=== PATIENT | female | born 1995 | race Two or more races ===

== ENCOUNTER 2018-06-04 04:12 | Inpatient (IN) | payer OTHER ==
[~2018-06-04] VITALS: Ht 157.5 cm; Wt 88.6 kg
[~2018-06-04 04:12] MED LIST: no meds per pt
[2018-06-04] MEDS ORDERED: OXYTOCIN 30U/ 0.9% NaCL 500ML 500 ML IV ONE (05:05)
[2018-06-04] MEDS ORDERED: LACTATED RINGERS 1,000 ML IV SCH ×3 (05:05→19:01)
[2018-06-04] MEDS ORDERED: D5%-LACTATED RINGERS 1,000 ML IV SCH (05:05)
[2018-06-04] MEDS ORDERED: NEWBORN KIT ONE (05:12)
[2018-06-04] MEDS ORDERED: OXYTOCIN 30U/ 0.9% NaCL 500ML 500 ML ONE (05:12)
[2018-06-04] MEDS ORDERED: ONDANSETRON 2MG/ML, 2ML IVPush PRN (05:30)
[2018-06-04] MEDS ORDERED: CALCIUM CARBONATE 500 MG TAB.CHEW PO PRN (05:30)
[2018-06-04] MEDS ORDERED: FENTANYL PF 100 MCG/2ML IVPush PRN (05:30)
[2018-06-04] MEDS ORDERED: FENTANYL PF 100 MCG/2ML IV PRN ×2 (05:30→21:30)
[2018-06-04 05:52] LABS: BASOPHILS # (AUTO) 0.02 x10^3/uL (0-0.1); BASOPHILS % (AUTO) 0 % (0-1); EOSINOPHILS # (AUTO) 0.05 x10^3/uL (0-0.4); EOSINOPHILS % (AUTO) 1 % (1-7); LYMPHOCYTES # (AUTO) 1.45 x10^3/uL (1-3.4); LYMPHOCYTES % (AUTO) 14 % (22-44); MD NO; MEAN CORPUSCULAR HEMOGLOBIN 29.3 pg (27.0-34.8); MEAN CORPUSCULAR HGB CONC 33.6 g/dL (32.4-35.8); MEAN CORPUSCULAR VOLUME 87.2 fL (80-100); MEAN PLATELET VOLUME 10.6 fL (7.4-10.4); MONOCYTES # (AUTO) 0.54 x10^3/uL (0.2-0.8); MONOCYTES % (AUTO) 5 % (2-9); NEUTROPHILS # (AUTO) 8.47 x10^3/uL (1.8-6.8); NEUTROPHILS % (AUTO) 80 % (42-75); PLATELET COUNT 228 x10^3/uL (130-400); RED BLOOD COUNT 4.18 x10^6/uL (3.82-5.3); RED CELL DISTRIBUTION WIDTH 15.5 % (9.6-15.2)
[2018-06-04] MEDS ORDERED: FENTANYL/BUPIV./NS/PF 250 ML EPIDCONT SCH (08:17)
[2018-06-04] MEDS ORDERED: FENTANYL PF 500 MCG, BUPIVACAINE/PF 0.5%, 30ML 62.5 ML in SODIUM CHLORIDE 0.9% 177.5 ML EPIDCONT SCH (08:30)
[2018-06-04] MEDS ORDERED: LACTATED RINGERS 1,000 ML IVBOLUS PRN (08:30)
[2018-06-04] MEDS ORDERED: FENTANYL PF 100 MCG/2ML ONE ×2 (08:49→19:50)
[2018-06-04] MEDS ORDERED: BUPIVACAINE 0.25% ONE (08:50)
[2018-06-04] MEDS ORDERED: OXYTOCIN 30U/ 0.9% NaCL 500ML 500 ML IV PRN (09:28)
[2018-06-04] MEDS ORDERED: EPHEDRINE 50 MG/ML, 1ML ONE ×3 (10:23→19:56)
[2018-06-04] MEDS ORDERED: EPHEDRINE 50 MG/ML, 1ML IVPush ONE (10:30)
[2018-06-04] MEDS ORDERED: METHYLERGONOVINE 0.2 MG/ML IM ONE (12:00)
[2018-06-04] MEDS ORDERED: AMPICILLIN 2 GM in SODIUM CHLORIDE 0.9% 100 ML IV SCH (18:30)
[2018-06-04] MEDS ORDERED: METOCLOPRAMIDE 5 MG/ML, 2ML ONE (19:11)
[2018-06-04] MEDS ORDERED: SODIUM CITRATE/CITRIC ACID 15 ML UDC ONE (19:11)
[2018-06-04] MEDS ORDERED: ACETAMINOPHEN 325 MG TABLET PO PRN (19:30)
[2018-06-04] MEDS ORDERED: MISOPROSTOL 200 MCG TABLET PR PRN (19:30)
[2018-06-04] MEDS ORDERED: METOCLOPRAMIDE 5 MG/ML, 2ML IV PRN (19:30)
[2018-06-04] MEDS ORDERED: ONDANSETRON 2MG/ML, 2ML IV PRN (19:30)
[2018-06-04] MEDS ORDERED: AMPICILLIN 2 GM in SODIUM CHLORIDE 0.9% 100 ML IV ONE (19:30)
[2018-06-04] MEDS ORDERED: MEPERIDINE/PF 50 MG/ML IM PRN (19:30)
[2018-06-04] MEDS ORDERED: METOCLOPRAMIDE 5 MG/ML, 2ML IV ONE (19:30)
[2018-06-04] MEDS ORDERED: SODIUM CITRATE/CITRIC ACID 30 ML UDC PO ONE (19:30)
[2018-06-04] MEDS ORDERED: LACTATED RINGERS 1,000 ML IVBOLUS ONE (19:30)
[2018-06-04] MEDS ORDERED: CEFAZOLIN 1,000 MG ONE (19:39)
[2018-06-04] MEDS ORDERED: morphine SULFATE/PF 0.5 MG/ML, 10ML ONE (19:40)
[2018-06-04] MEDS ORDERED: ONDANSETRON 2MG/ML, 2ML ONE (19:56)
[2018-06-04] MEDS ORDERED: PROPOFOL 10 MG/ML, 20ML ONE (19:57)
[2018-06-04] MEDS ORDERED: KETOROLAC 30 MG/1 ML ONE (20:54)
[2018-06-04] MEDS: KETOROLAC 30 MG/1 ML IV SCH (20:56)
[2018-06-04] MEDS ORDERED: MEPERIDINE/PF 50 MG/ML ONE (21:01)
[2018-06-04] MEDS: MEPERIDINE/PF 25MG/0.5ML IVPush PRN ×2 (21:14→22:10)
[2018-06-04] MEDS ORDERED: HYDROmorphone 2 MG/ML, 1ML IVPush PRN (21:30)
[2018-06-04] MEDS: LACTATED RINGERS 1,000 ML IV SCH (21:37)
[2018-06-04] MEDS: OXYTOCIN 30U/ 0.9% NaCL 500ML 500 ML IV SCH (21:37)
[2018-06-04 23:00] VITALS: BP 130/71
[2018-06-05] MEDS ORDERED: AMPICILLIN 1 GM IVPB SCH (00:30)
[2018-06-05] MEDS ORDERED: AMPICILLIN 1 GM IM SCH (00:30)
[2018-06-05] MEDS: AMPICILLIN 1 GM in SODIUM CHLORIDE 0.9% 100 ML IV SCH ×4 (00:37→18:41)
[2018-06-05] MEDS: HYDROcodone/APAP 5/325 TABLET PO PRN ×5 (00:46→18:41)
[2018-06-05] MEDS: KETOROLAC 30 MG/1 ML IV SCH ×4 (03:10→21:59)
[2018-06-05 04:00] VITALS: BP 102/56
[2018-06-05 04:16] LABS: HEMOGRAM NOTE RECHECKED; MEAN CORPUSCULAR HEMOGLOBIN 28.9 pg (27.0-34.8); MEAN CORPUSCULAR HGB CONC 33.5 g/dL (32.4-35.8); MEAN CORPUSCULAR VOLUME 86.3 fL (80-100); MEAN PLATELET VOLUME 10.6 fL (7.4-10.4); PLATELET COUNT 202 x10^3/uL (130-400); RED BLOOD COUNT 3.46 x10^6/uL (3.82-5.3); RED CELL DISTRIBUTION WIDTH 15.9 % (9.6-15.2)
[2018-06-05] MEDS: LACTATED RINGERS 1,000 ML IV SCH (05:01)
[2018-06-05] MEDS: OXYTOCIN 30U/ 0.9% NaCL 500ML 500 ML IV SCH (05:01)
[2018-06-05 05:41] LABS: BASOPHILS # (AUTO) 0.01 x10^3/uL (0-0.1); BASOPHILS % (AUTO) 0 % (0-1); EOSINOPHILS % (AUTO) 0 % (1-7); LYMPHOCYTES # (AUTO) 1.26 x10^3/uL (1-3.4); LYMPHOCYTES % (AUTO) 6 % (22-44); MD SCAN; MONOCYTES # (AUTO) 0.78 x10^3/uL (0.2-0.8); MONOCYTES % (AUTO) 4 % (2-9); NEUTROPHILS # (AUTO) 18.45 x10^3/uL (1.8-6.8); NEUTROPHILS % (AUTO) 90 % (42-75)
[2018-06-05 08:40] VITALS: BP 96/62
[2018-06-05] MEDS: PRENATAL VIT/IRON/FA 1 EACH TABLET PO SCH (09:01)
[2018-06-05] MEDS: DOCUSATE 100 MG CAPSULE PO PRN ×2 (09:02→21:59)
[2018-06-05 12:55] VITALS: BP 89/53
[2018-06-05] MEDS ORDERED: DIPH,PERTUSS(ACELL),TET VAC/PF NC IM-VACC ONE (14:00)
[2018-06-05 16:21] VITALS: BP 105/66
[2018-06-05 20:00] VITALS: BP 98/63
[2018-06-06] MEDS: AMPICILLIN 1 GM in SODIUM CHLORIDE 0.9% 100 ML IV SCH ×2 (00:13→06:06)
[2018-06-06 00:20] VITALS: BP 103/64
[2018-06-06] MEDS: HYDROcodone/APAP 5/325 TABLET PO PRN ×4 (01:06→16:53)
[2018-06-06] MEDS: KETOROLAC 30 MG/1 ML IV SCH ×2 (03:59→09:00)
[2018-06-06 04:00] VITALS: BP 109/60
[2018-06-06 07:20] VITALS: BP 99/62
[2018-06-06] MEDS: DOCUSATE 100 MG CAPSULE PO PRN ×2 (07:45→19:53)
[2018-06-06] MEDS: PRENATAL VIT/IRON/FA 1 EACH TABLET PO SCH (07:45)
[2018-06-06] MEDS: IBUPROFEN 600 MG TABLET PO PRN ×2 (12:34→19:53)
[2018-06-06] MEDS ORDERED: IBUP-1222 PO (12:39)
[2018-06-06] MEDS ORDERED: HYDR-3240 PO (12:39)
[2018-06-06 15:33] VITALS: BP 102/58
[2018-06-06 20:00] VITALS: BP 110/71
== END 2018-06-06 22:14 | disposition home or self-care (01) | DRG 786 ==
LOC: LDOP 04:12 → LDIP 06:29 → 2NW 22:48
PROVIDERS: ADMIT Obstetrics & Gynecology Female Pelvic Medicine and Reconstructive Surgery; ATTEND Obstetrics & Gynecology Female Pelvic Medicine and Reconstructive Surgery
PROC: 10D00Z1 Extraction of Products of Conception, Low, Open Approach (ICD-10-PCS; principal; 2018-06-04)
PROC: 10H07YZ Insertion of Other Device into Products of Conception, Via Natural or Artificial Opening (ICD-10-PCS; 2018-06-04)
PROC: 10907ZC Drainage of Amniotic Fluid, Therapeutic from Products of Conception, Via Natural or Artificial Opening (ICD-10-PCS; 2018-06-04)
DX: O77.0 Labor and delivery complicated by meconium in amniotic fluid (principal); O41.1230 Chorioamnionitis, third trimester, not applicable or unspecified; O99.354 Diseases of the nervous system complicating childbirth; O63.9 Long labor, unspecified; O62.0 Primary inadequate contractions; Z3A.39 39 weeks gestation of pregnancy; Z37.0 Single live birth
CPT/HCPCS: 36415; 85025; 86850; 86900; 89060; 90656; 90715; G0378; J0290; J0690; J1885; J2175; J2274; J2405; J2704; J3010; J3490; J2210; J2590; J2765; J7050; J7120; Q0114